=== PATIENT | male | born 1960 | race Caucasian/White ===

== ENCOUNTER → 2016-09-14 | Outpatient (CLI) | payer OTHER ==
--- NOTE | 2016-09-14 17:02 | RADIOLOGY REPORT (SQ) ---
EXAM DESCRIPTION: L SPINE 2 VIEWS COMPLETED DATE/TIME: 09/14/2016 4:38 pm REASON FOR STUDY: SCREEN FOR MRI M54.12 RADICULOPATHY, CERVICAL REGION M54.16 RADICULOPATHY, LUMBA R REGION COMPARISON: None. NUMBER OF VIEWS: Two views. TECHNIQUE: AP and lateral radiographic images acquired of the lumbar spine. LIMITATIONS: None. FINDINGS: MINERALIZATION: Normal. SEGMENTATION: Normal. No transitional anatomy. ALIGNMENT: Normal. VERTEBRAE: Maintained height. No fracture or worrisome bone lesion. DISCS: Prominent disc space narrowing at L4-L5 with sclerosis. POSTERIOR ELEMENTS: Pedicles and facets are intact. No pars defect or posterior arch defects. HARDWARE: Spinal stimulator device and electrodes extending into the thoracic spine. PARASPINAL SOFT TISSUES: Normal. PELVIS: Intact as visualized. No fractures or worrisome bone lesions. SI joints intact. OTHER: No other significant finding. IMPRESSION: DEGENERATIVE DISC DISEASE AT L4-L5. SPINAL STIMULATOR DEVICE. TECHNICAL DOCUMENTATION: JOB ID: [id number] [employer]- All Rights Reserved
--- NOTE | 2016-09-14 17:02 | RADIOLOGY REPORT (SQ) ---
EXAM DESCRIPTION: T SPINE AP/LAT COMPLETED DATE/TIME: 09/14/2016 4:38 pm REASON FOR STUDY: SCREEN FOR MRI M54.12 RADICULOPATHY, CERVICAL REGION M54.16 RADICULOPATHY, LUMB AR REGION COMPARISON: None. NUMBER OF VIEWS: Two views. TECHNIQUE: AP and lateral radiographic images acquired of the thoracic spine. LIMITATIONS: None. FINDINGS: MINERALIZATION: Normal. ALIGNMENT: Normal. No scoliosis. VERTEBRAE: No fracture or bone lesion. Maintained height, normal segmentation. DISCS: No significant loss of height or significant narrowing. No large osteophytes. HARDWARE: Spinous stimulator electrodes with the distal tips in the mid thoracic spine. MEDIASTINUM AND SOFT TISSUES: Normal heart size and aortic contour. No soft tissue abnormality. VISUALIZED LUNG GARCIA: Clear. OTHER: No other significant finding. IMPRESSION: SPINAL STIMULATOR ELECTRODES. TECHNICAL DOCUMENTATION: JOB ID: [id number] [employer]- All Rights Reserved
--- NOTE | 2016-09-15 08:31 | RADIOLOGY REPORT (SQ) ---
EXAM DESCRIPTION: MRI CERVICAL SPINE WITHOUT COMPLETED DATE/TIME: 09/14/2016 6:07 pm REASON FOR STUDY: RADICULOPATHY, CERVICAL REGION, RADICULOPATHY, LUMBAR REGION M54.12 RADICULOPATHY , CERVICAL REGION M54.16 RADICULOPATHY, LUMBAR REGION COMPARISON: None. TECHNIQUE: Sagittal and Axial imaging includes T1, T2, STIR and gradient echo sequences. LIMITATIONS: None. FINDINGS: ALIGNMENT: Straightening of the cervical curvature. Otherwise anatomic alignment. VERTEBRAE: Intact. BONE MARROW: Normal. No marrow replacement or reactive changes. DISCS: Normal. No significant abnormal signal or loss of height. HARDWARE: None in the spine. CORD AND BASE OF BRAIN: Normal in size and signal intensity. SOFT TISSUES: No soft tissue masses. C1-C2: No significant spinal stenosis. C2-C3: No significant spinal stenosis or exit foraminal stenosis. C3-C4: Right-sided disc and osteophyte and uncovertebral spurring. Right exit foraminal stenosis. N o significant spinal stenosis. C4-C5: Minimal right lateral disc and osteophyte. Bilateral uncovertebral spurring. Bilateral exit foraminal stenosis. No significant spinal stenosis. C5-C6: Minimal uncovertebral spurring with minimal bilateral exit foraminal stenosis. C6-C7: Minimal posterior disc bulge. No significant spinal stenosis or exit foraminal stenosis. C7-T1: No significant spinal stenosis or exit foraminal stenosis. UPPER THORACIC: Incompletely imaged. No significant spinal stenosis or exit foraminal stenosis. OTHER: No other significant finding. IMPRESSION: CHRONIC DEGENERATIVE CHANGES DESCRIBED. PRIMARY FINDINGS ARE RELATED TO EXIT FORAMIN AL STENOSIS. NO SIGNIFICANT SPINAL STENOSIS. TECHNICAL DOCUMENTATION: JOB ID: [id number] [employer]- All Rights Reserved
--- NOTE | 2016-09-15 08:34 | RADIOLOGY REPORT (SQ) ---
EXAM DESCRIPTION: MRI LUMBAR SPINE WITHOUT COMPLETED DATE/TIME: 09/14/2016 6:07 pm REASON FOR STUDY: RADICULOPATHY, CERVICAL REGION, RADICULOPATHY, LUMBAR REGION M54.12 RADICULOPATHY , CERVICAL REGION M54.16 RADICULOPATHY, LUMBAR REGION COMPARISON: None. TECHNIQUE: Sagittal and Axial imaging includes T1, T2, STIR and gradient echo sequences. Coronal T2/ HASTE imaging. LIMITATIONS: None. FINDINGS: VISUALIZED UPPER ABDOMEN: Limited evaluation. No acute or suspicious findings suggested. SEGMENTATION: No transitional anatomy. The lowest well-developed disc space is labeled L5-S1. ALIGNMENT: Anatomic. VERTEBRAE: Intact. BONE MARROW: Normal. No marrow replacement or reactive changes. DISC SIGNAL: Decreased height and signal at L4-L5. POSTERIOR ELEMENTS: Generally intact. No pars defect evident. HARDWARE: Spinal stimulator device with electrodes entering at the level of L2 and extending into the thoracic spinal canal. CORD AND CONUS: Normal in size and signal intensity. Conus at the appropriate level. SOFT TISSUES: No aortic aneurysm seen. No bulky retroperitoneal adenopathy or mass. No paraspinal mas s or fluid. L1-L2: No significant spinal stenosis or exit foraminal stenosis. L2-L3: No significant spinal stenosis or exit foraminal stenosis. L3-L4: No significant spinal stenosis or exit foraminal stenosis. L4-L5: Mild diffuse posterior annular bulge with small right lateral component resulting in right lat eral recess stenosis. Mild right exit foraminal stenosis. No central canal stenosis. L5-S1: No significant spinal stenosis or exit foraminal stenosis. LOWER THORACIC: Incompletely imaged. No stenosis seen. SACRUM: Visualized upper sacrum intact. OTHER: No other significant findings. IMPRESSION: DESICCATION OF THE L4-L5 DISC WITH MILD DIFFUSE POSTERIOR ANNULAR BULGE AND SMALL RIGHT LATERAL COMPONENT RESULTING IN RIGHT LATERAL RECESS STENOSIS AND MILD RIGHT EXIT FORAMINAL STENOSIS. REMAINDER OF THE LUMBAR SPINE IS OTHERWISE UNREMARKABLE. TECHNICAL DOCUMENTATION: JOB ID: [id number]- All Rights Reserved
== END ==
LOC: RAD 16:20
PROVIDERS: ATTEND Pain Medicine Interventional Pain Medicine
DX: M54.12 Radiculopathy, cervical region (principal); M54.16 Radiculopathy, lumbar region; M47.892 Other spondylosis, cervical region; M51.36 Other intervertebral disc degeneration, lumbar region
CPT/HCPCS: 72070; 72100; 72141; 72148

== ENCOUNTER → 2017-02-18 | Outpatient (CLI) | payer OTHER ==
--- NOTE | 2017-02-18 13:12 | RADIOLOGY REPORT (SQ) ---
EXAM DESCRIPTION: L SPINE FLEX/EXT ONLY COMPLETED DATE/TIME: 02/18/2017 1:02 pm REASON FOR STUDY: lUMBAR RADIOLOPATHY COMPARISON: August 2016 NUMBER OF VIEWS: Three views TECHNIQUE: AP and lateral flexion and extension views LIMITATIONS: None. FINDINGS: MINERALIZATION: Normal. SEGMENTATION: Normal. No transitional anatomy. ALIGNMENT: Normal. FLEXION/EXTENSION: No instability. VERTEBRAE: Maintained height. No fracture or worrisome bone lesion. DISCS: Disc spacers are identified at the L4-L5 and L5-S1 levels POSTERIOR ELEMENTS: Pedicles and facets are intact. No pars defect or posterior arch defects. HARDWARE: Posterior orthopedic rods transfixed by pedicular screws are identified extending from the L4 level to the level of the 1st sacral segment OTHER: No other significant finding. IMPRESSION: Postsurgical changes as noted above. NO INSTABILITY ON FLEXION/EXTENSION. TECHNICAL DOCUMENTATION: JOB ID: [id number] [employer]- All Rights Reserved
== END ==
LOC: RAD 12:35
PROVIDERS: ATTEND Specialist
DX: M54.16 Radiculopathy, lumbar region (principal)
CPT/HCPCS: 72120

== ENCOUNTER → 2017-03-23 | Outpatient (CLI) | payer OTHER ==
--- NOTE | 2017-03-23 17:44 | RADIOLOGY REPORT (SQ) ---
EXAM DESCRIPTION: L SPINE FLEX/EXT ONLY COMPLETED DATE/TIME: 03/23/2017 4:43 pm REASON FOR STUDY: LUMBAR RADICULOPATHY COMPARISON: None. TECHNIQUE: AP and lateral flexion and extension radiographs of the spine. NUMBER OF VIEWS: Four views. LIMITATIONS: None. FINDINGS: Postoperative changes L4-L5, L5-S1 related previous surgical fusion. Interbody fusion dev ices L4-L5 and L5-S1 in good position. OTHER: No other significant finding. IMPRESSION: NO RADIOGRAPHIC EVIDENCE OF ABNORMAL MOTION. TECHNICAL DOCUMENTATION: JOB ID: [id number] [employer]- All Rights Reserved
== END ==
LOC: RAD 16:19
PROVIDERS: ATTEND Specialist
DX: M54.16 Radiculopathy, lumbar region (principal)
CPT/HCPCS: 72120

== ENCOUNTER 2017-05-18 05:49 | Day surgery (SDC) | payer OTHER ==
[2017-05-11 11:10] LABS: HEMATOCRIT 42.1 % (37.9-51.0); HEMOGLOBIN 13.6 g/dL (13.5-17.0); MEAN CORPUSCULAR HEMOGLOBIN 26.7 pg (27.0-33.4); MEAN CORPUSCULAR HGB CONC 32.4 g/dL (32.0-36.0); MEAN CORPUSCULAR VOLUME 82 fl (80-97); PLATELET COUNT 271 10^3/uL (150-450); RED BLOOD COUNT 5.11 10^6/uL (4.35-5.55); RED CELL DISTRIBUTION WIDTH 14.7 % (11.5-14.0); WHITE BLOOD COUNT 4.8 10^3/uL (4.0-10.5)
[2017-05-11 11:13] LABS: APPEARANCE,URINE CLEAR; BILIRUBIN,URINE NEGATIVE (NEGATIVE); COLOR,URINE YELLOW; GLUCOSE, URINE NEGATIVE (NEGATIVE); KETONES,URINE NEGATIVE (NEGATIVE); LEUKOCYTE ESTERASE,URINE NEGATIVE (NEGATIVE); NITRITE,URINE NEGATIVE (NEGATIVE); PROTEIN,URINE NEGATIVE (NEGATIVE); URINE SPECIFIC GRAVITY 1.016; UROBILINOGEN,URINE NEGATIVE mg/dL (<2.0)
[2017-05-11 11:18] LABS: INTERNATIONAL RATION (INR) 0.91; PARTIAL THROMBOPLASTIN TIME 30.5 SEC (23.5-35.8); PROTHROMBIN TIME 12.9 SEC (11.4-15.4)
--- NOTE | 2017-05-11 11:25 | RADIOLOGY REPORT (SQ) ---
EXAM DESCRIPTION: CHEST PA/LATERAL COMPLETED DATE/TIME: 05/11/2017 10:29 am REASON FOR STUDY: PRE OP COMPARISON: None. TECHNIQUE: Frontal and lateral radiographic views of the chest acquired. NUMBER OF VIEWS: Two view. LIMITATIONS: None. FINDINGS: LUNGS AND PLEURA: No opacities, masses or pneumothorax. No pleural effusion. MEDIASTINUM AND HILAR STRUCTURES: No masses or contour abnormalities. HEART AND VASCULAR STRUCTURES: Heart normal size. No evidence for failure. BONES: No acute findings. HARDWARE: Dorsal epidural spinal leads project to approximately the T6-7 level. OTHER: No other significant finding. IMPRESSION: NO SIGNIFICANT RADIOGRAPHIC FINDING IN THE CHEST. TECHNICAL DOCUMENTATION: JOB ID: [id number] [employer]- All Rights Reserved Reading location - IP/workstation name: [email or web address]
--- NOTE | 2017-05-11 13:21 | EKG REPORT ---
SEVERITY:- NORMAL ECG - SINUS RHYTHM : Confirmed by: Norbert Canada MD 11-May-2017 13:20:47
[~2017-05-18 05:49] MED LIST: CLINDAMYCIN 600 MG/D5W RTU 600 MG/50 ML RTUPB IV PRN; LACTATED RINGERS 1000 ML IV PRN; LIDOCAINE 0.5% INJ-PF (5 MG/ML) 50 ML SDV SUBCUT PRN
[2017-05-18] MEDS ORDERED: FENTANYL CITRATE INJ/PF 100 MCG/2 ML AMPUL ONE (06:50)
[2017-05-18] MEDS ORDERED: MIDAZOLAM 2 MG/2 ML INJ ONE (06:50)
[2017-05-18] MEDS ORDERED: PROPOFOL INJ 200 MG/20 ML VIAL IV ONE (06:50)
[2017-05-18] MEDS ORDERED: BUPIVACAINE HCL 0.25 % INJ/PF (2.5 MG/1 ML) 30 ML VIAL ONE (07:56)
[2017-05-18] MEDS ORDERED: LIDOCAINE 1% INJ-PF (10 MG/ML) 30 ML SDV ONE ×2 (07:56→08:05)
[2017-05-18] MEDS ORDERED: BUPIVACAINE HCL 0.5%-EPI 1:200000 INJ/PF 30 ML VIAL ONE (07:57)
[2017-05-18] MEDS ORDERED: SODIUM BICARBONATE 10 ML IV ONE (07:58)
[2017-05-18] MEDS ORDERED: PROMETHAZINE HCL INJ 25 MG/1 ML VIAL IV PRN (08:29)
[2017-05-18] MEDS ORDERED: DIPHENHYDRAMINE HCL 50 MG/ML VIAL IV PRN (08:29)
[2017-05-18] MEDS ORDERED: MEPERIDINE HCL/PF INJ 25 MG/1 ML DISP.SYRIN IV PRN (08:29)
[2017-05-18] MEDS ORDERED: CLINDAMYCIN 600 MG/D5W RTU 600 MG/50 ML RTUPB IV ONE (09:12)
[2017-05-18] MEDS: FENTANYL CITRATE INJ/PF 100 MCG/2 ML AMPUL ONE ×2 (09:14→09:24)
[2017-05-18] MEDS ORDERED: ACETAMINOPHEN 100 ML IV ONE (09:18)
[2017-05-18] MEDS ORDERED: ONDANSETRON HCL INJ/PF 4 MG/2 ML SDV IV PRN (10:05)
[2017-05-18] MEDS ORDERED: OXYCODONE-ACETAMINOPHEN 5-325 MG TABLET PO PRN (10:05)
[2017-05-18 11:41] VITALS: BP 106/57
--- NOTE | 2017-05-25 14:49 | OPERATIVE REPORT E ---
Operative Report NAME: KIEL GARCÍA : 1960 AGE: 56Y DATE OF SURGERY: 05/18/2017 ROOM: PREOPERATIVE DIAGNOSIS: Implantable pulse generator pocket pain and battery dysfunction. POSTOPERATIVE DIAGNOSIS: Implantable pulse generator pocket pain and battery dysfunction. PROCEDURES PERFORMED: 1. Revision of battery pocket. 2. Replacement of implantable pulse generator with different model. PRIMARY SURGEON: ALMA ROSA PARHAM M.D. ASSISTANTS: None. PREOPERATIVE ANTIBIOTICS: Clindamycin 600 mg given prior to incision. ANESTHESIA: MAC with sedation. ESTIMATED BLOOD LOSS: 5 mL. COMPLICATIONS: None. SPECIMENS REMOVED: Old battery removed and discarded. OPERATIVE FINDINGS: New implantable pulse generator placed with revision of pocket. OPERATIVE INDICATIONS: The patient is a 56-year-old male who has had a [employer] spinal cord stimulator system in place for nearly a year now. The patient has had ongoing issues with battery pocket pain and requested revision of pocket and replacement of battery that was malfunctioning. The patient had all risks and benefits discussed with him in detail including but not limited to bleeding, bruising, infection, injury to nerves, arteries, or veins, failure of the new system to work, migration of pocket, and potential need for revision of leads. The patient expressed understanding and agreed to proceed. OPERATIVE REPORT: The patient was accompanied to the operative suite by Anesthesia, and he was placed in prone position. All pressure points were checked and padded. Standard ASA lines and monitors were applied. The patient was prepped and draped in sterile fashion using chlorhexidine gluconate solution and an Ioban drape. The previously marked incision site over the right buttock was marked and infiltrated with buffered 1% lidocaine. Deeper tissues were infiltrated with 0.25% bupivacaine with 1:200,000 epinephrine. This was done using a 25-gauge needle. A 15-blade scalpel was used to incise the skin along the planned incision site. The previous battery was removed from the implanted site after adequate hemostasis was assured using bipolar electrocautery. The leads were disconnected from the currently placed battery and new battery placed. Notably, the new battery was a [employer] 6 Elite Model through [employer] which is a non-rechargeable battery. At this time, attention was turned to the pocket. Using 3-0 Vicryl suture, 3 sutures were placed along the bottom of the pocket site going from top to bottom in interrupted fashion to ensure closure of the bottom of the pocket. Further dissection, blunt and Bovie dissection, superiorly and laterally to the previous pocket site was performed, and a new implantable pulse generator was easily placed in the revised pocket site. Copious irrigation was performed with dilute Betadine solution. Subsequently, closure ensued with interrupted 3-0 Vicryl suture in vertical mattress fashion. Skin was closed using Dermabond, tape, and glue. The patient tolerated the procedure well and was accompanied to the PACU by Anesthesia Staff. The patient will be seen in 1 day postoperatively. DICTATING PHYSICIAN: ALMA ROSA PARHAM M.D. [id number] PHY#: [id number] ID: [id number] JOB#: [id number] ACCT: [id number] cc:ALMA ROSA PARHAM M.D. >
== END 2017-05-18 11:20 | disposition home or self-care (01) ==
LOC: OROUT 05:49
PROVIDERS: ATTEND Pain Medicine Interventional Pain Medicine
PROC: 0JH70MZ Insertion of Stimulator Generator into Back Subcutaneous Tissue and Fascia, Open Approach (ICD-10-PCS; principal; 2017-05-18 08:00)
DX: G89.4 Chronic pain syndrome (principal); M54.17 Radiculopathy, lumbosacral region; M47.897 Other spondylosis, lumbosacral region; M54.81 Occipital neuralgia; M54.12 Radiculopathy, cervical region; M48.02 Spinal stenosis, cervical region; M47.892 Other spondylosis, cervical region; M50.30 Other cervical disc degeneration, unspecified cervical region; F45.42 Pain disorder with related psychological factors; M51.37 Other intervertebral disc degeneration, lumbosacral region; M79.1 Myalgia; M51.36 Other intervertebral disc degeneration, lumbar region; I10 Essential (primary) hypertension; E78.5 Hyperlipidemia, unspecified; K21.9 Gastro-esophageal reflux disease without esophagitis; G47.33 Obstructive sleep apnea (adult) (pediatric); Z79.899 Other long term (current) drug therapy; Z79.891 Long term (current) use of opiate analgesic; Z87.891 Personal history of nicotine dependence; Z01.812 Encounter for preprocedural laboratory examination; Z88.0 Allergy status to penicillin
CPT/HCPCS: 93005; 36415; 85027; 85610; 85730; 81001; 71046; 93010; 63685; J2250; J3490 ×3; J3010; J2704; J0131; C1820; 300

== ENCOUNTER → 2017-07-14 | Outpatient (CLI) | payer OTHER ==
--- NOTE | 2017-07-14 17:13 | RADIOLOGY REPORT (SQ) ---
EXAM DESCRIPTION: L SPINE W/FLEX/EXT COMPLETED DATE/TIME: 07/14/2017 5:02 pm REASON FOR STUDY: RADICULOPATHY,LUMBAR REGION M54.16 RADICULOPATHY, LUMBAR REGION COMPARISON: 03/23/2017 NUMBER OF VIEWS: Four views TECHNIQUE: An AP view was obtained. Lateral views were obtained in neutral, flexion, and extension. LIMITATIONS: None. FINDINGS: MINERALIZATION: Normal. SEGMENTATION: Normal. No transitional anatomy. ALIGNMENT: Normal. FLEXION/EXTENSION: No instability. VERTEBRAE: Maintained height. No fracture or worrisome bone lesion. DISCS: Disc implants are present at L4-5 and L5-S1. POSTERIOR ELEMENTS: Pedicles and facets are intact. No pars defect or posterior arch defects. HARDWARE: Posterior rods from L4-S1 with screws through the pedicles. Disc space implants at L4-5 an d L5-S1. OTHER: No other significant finding. IMPRESSION: NO SIGNIFICANT FINDING IN THE SPINE. NO INSTABILITY ON FLEXION/EXTENSION. TECHNICAL DOCUMENTATION: JOB ID: [id number] [employer]- All Rights Reserved Reading location - IP/workstation name: [email or web address]
== END ==
LOC: RAD 16:30
PROVIDERS: ATTEND Specialist
DX: M54.16 Radiculopathy, lumbar region (principal)
CPT/HCPCS: 72114

== ENCOUNTER 2018-11-29 12:46 | Day surgery (SDC) | payer OTHER ==
[2018-11-21 10:22] LABS: APPEARANCE,URINE CLEAR; BILIRUBIN,URINE NEGATIVE (NEGATIVE); COLOR,URINE YELLOW; GLUCOSE, URINE NEGATIVE (NEGATIVE); KETONES,URINE NEGATIVE (NEGATIVE); LEUKOCYTE ESTERASE,URINE NEGATIVE (NEGATIVE); NITRITE,URINE NEGATIVE (NEGATIVE); PROTEIN,URINE NEGATIVE (NEGATIVE); URINE SPECIFIC GRAVITY 1.017; UROBILINOGEN,URINE NEGATIVE mg/dL (<2.0)
[2018-11-21 10:28] LABS: HEMATOCRIT 45.3 % (37.9-51.0); HEMOGLOBIN 15.1 g/dL (13.5-17.0); MEAN CORPUSCULAR HEMOGLOBIN 29.1 pg (27.0-33.4); MEAN CORPUSCULAR HGB CONC 33.3 g/dL (32.0-36.0); MEAN CORPUSCULAR VOLUME 87 fl (80-97); PLATELET COUNT 219 10^3/uL (150-450); RED BLOOD COUNT 5.19 10^6/uL (4.35-5.55); RED CELL DISTRIBUTION WIDTH 14.2 % (11.5-14.0); WHITE BLOOD COUNT 5.1 10^3/uL (4.0-10.5)
[2018-11-21 10:33] LABS: INTERNATIONAL RATION (INR) 0.97; PROTHROMBIN TIME 12.9 SEC (11.4-15.4)
--- NOTE | 2018-11-21 10:46 | RADIOLOGY REPORT (SQ) ---
EXAM DESCRIPTION: CHEST PA/LATERAL COMPLETED DATE/TIME: 11/21/2018 10:00 am REASON FOR STUDY: PRE-OP COMPARISON: 10/30/2015 EXAM PARAMETERS: NUMBER OF VIEWS: two views TECHNIQUE: Digital Frontal and Lateral radiographic views of the chest acquired. RADIATION DOSE: NA LIMITATIONS: none FINDINGS: LUNGS AND PLEURA: Stable small calcified granuloma right lower lung. No acute pulmonary consolidation. No pneumothorax or pleural effusion. MEDIASTINUM AND HILAR STRUCTURES: No masses or contour abnormalities. HEART AND VASCULAR STRUCTURES: Heart normal size. No evidence for failure. BONES: No acute findings. HARDWARE: Stimulator device with the leads projected over the mid thoracic spine, new finding since the prior study.OTHER: No other significant finding. IMPRESSION: 1. No significant interval changes since the prior examination dated 10/30/2015. Calcif ied granuloma in the right lung. No acute findings. TECHNICAL DOCUMENTATION: JOB ID: [id number] [employer]- All Rights Reserved Reading location - IP/workstation name: [email or web address]
--- NOTE | 2018-11-21 13:03 | EKG REPORT ---
SEVERITY:- NORMAL ECG - SINUS RHYTHM : Confirmed by: Norbert Canada MD 21-Nov-2018 13:03:19
[~2018-11-29 12:46] MED LIST changes: +CEFAZOLIN SODIUM 1 GM in DEXTROSE 5%-WATER 50 ML IV PRN; +CLINDAMYCIN 600 MG/D5W RTU 600 MG/50 ML RTUPB IV ONE
[2018-11-29] MEDS ORDERED: FENTANYL CITRATE INJ/PF 100 MCG/2 ML AMPUL ONE (14:46)
[2018-11-29] MEDS ORDERED: PROPOFOL INJ 200 MG/20 ML VIAL IV ONE (14:46)
[2018-11-29] MEDS ORDERED: MIDAZOLAM 2 MG/2 ML INJ ONE (14:46)
[2018-11-29] MEDS ORDERED: SODIUM BICARBONATE 4.2% INJ (2.5 MEQ/5 ML) VIAL ONE (14:58)
[2018-11-29] MEDS ORDERED: LIDOCAINE 1% INJ-PF (10 MG/ML) 30 ML SDV ONE (14:58)
[2018-11-29] MEDS ORDERED: BUPIVACAINE HCL 0.5%-EPI 1:200000 INJ/PF 30 ML VIAL ONE (14:58)
[2018-11-29] MEDS ORDERED: BUTALB/ACETAMINOPHEN/CAFFEINE 1 TAB EACH PO ONE (15:00)
[2018-11-29] MEDS ORDERED: MEPERIDINE HCL/PF INJ 25 MG/1 ML DISP.SYRIN IV PRN (15:36)
[2018-11-29] MEDS ORDERED: PROMETHAZINE HCL INJ 25 MG/1 ML VIAL IV PRN ×2 (15:36)
[2018-11-29] MEDS ORDERED: ONDANSETRON HCL INJ/PF 4 MG/2 ML SDV IV PRN ×2 (15:36→16:32)
[2018-11-29] MEDS ORDERED: FENTANYL CITRATE INJ/PF 100 MCG/2 ML AMPUL IV PRN ×3 (15:36)
[2018-11-29] MEDS ORDERED: DIPHENHYDRAMINE HCL 50 MG/ML VIAL IV PRN (15:36)
[2018-11-29] MEDS ORDERED: OXYCODONE-ACETAMINOPHEN 5-325 MG TABLET PO PRN ×3 (15:36→16:32)
[2018-11-29] MEDS ORDERED: LIDOCAINE 1% INJ (10 MG/ML) 10 ML MDV INJ ONE (15:39)
[2018-11-29] MEDS ORDERED: BUPIVACAINE HCL 0.5%-EPI 1:200000 INJ/PF 30 ML VIAL INJ ONE ×2 (15:40)
--- NOTE | 2018-11-29 16:02 | Operative Report ---
Operative Report DATE OF SURGERY: 11/29/18 PREOPERATIVE DIAGNOSIS: Nonfunctioning implantable pulse generator POSTOPERATIVE DIAGNOSIS: Same OPERATION: Replacement implantable pulse generator. revision of battery pocket SURGEON: DANIELLE WELLS ANESTHESIA: Moderate Sedation TISSUE REMOVED OR ALTERED: Nonfunctional battery COMPLICATIONS: None ESTIMATED BLOOD LOSS: 5ML INTRAOPERATIVE FINDINGS: Nonfunctional battery removed replaced with functioning rechargeable battery PROCEDURE: Date of Surgery: November 29, 2018 Preoperative Diagnosis: Nonfunctional battery Postoperative Diagnosis:Same Procedure: SCS Battery Replacement Surgeon: Danielle Wells MD Anesthesia: MAC Complications: None Procedure Detail: After obtaining informed consent and advising the patient of the risks and benefits, including serious neurological injury, bleeding and infection, allergic reaction and , the patient was taken to the operating room. The patient was placed comfortably in the prone position. Comfort was assessed visually and verbally. The patient was then prepped with chlorhexidine with a suitable drying time prior to draping. An Ioban drape was used. The pulse generator was readily palpable and site marked. The previous incisional scar was anesthetized with 1% lidocaine with bicarbonate, followed by bupivacaine 0.25% with epinephrine. Sharp and blunt dissection were performed down to the pulse generator taking care to avoid the SCS wires. This was readily identified. Electrocautery was minimally necessary for hemostasis. The old generator was removed easily. A small relaxing incision was made in the scar capsule of the pulse generator pocket to facilitate placement of the new battery. The new generator was connected to the electrodes. All hex nuts were secured. The generator was placed in the pocket and impedance was tested and was felt to be satisfactory. Good connectivity with the new generator was obtained. The wound was then copiously irrigated with Betadine containing irrigation solution. The site was then closed with interrupted vertical mattress sutures with 3-0 Polysorb. The skin came together nicely. The region was cleansed again followed by placement of dermabond tape and cement. When this was dry, suitable tegaderm sponge dressing was placed. The patient was then taken back to PACU for postoperative care and monitoring.
[2018-11-29 17:12] VITALS: BP 124/90
== END 2018-11-29 17:13 | disposition home or self-care (01) ==
LOC: OROUT 12:46
PROVIDERS: ATTEND Pain Medicine Interventional Pain Medicine
DX: G89.4 Chronic pain syndrome (principal); E78.5 Hyperlipidemia, unspecified; I10 Essential (primary) hypertension; Z87.891 Personal history of nicotine dependence; M96.1 Postlaminectomy syndrome, not elsewhere classified; M47.897 Other spondylosis, lumbosacral region; M51.37 Other intervertebral disc degeneration, lumbosacral region; F45.42 Pain disorder with related psychological factors; M46.1 Sacroiliitis, not elsewhere classified; M47.892 Other spondylosis, cervical region; M48.02 Spinal stenosis, cervical region; M50.30 Other cervical disc degeneration, unspecified cervical region; M51.36 Other intervertebral disc degeneration, lumbar region; M53.3 Sacrococcygeal disorders, not elsewhere classified; M54.12 Radiculopathy, cervical region; M54.16 Radiculopathy, lumbar region; M54.17 Radiculopathy, lumbosacral region; M54.81 Occipital neuralgia; M79.12 Myalgia of auxiliary muscles, head and neck; Z51.81 Encounter for therapeutic drug level monitoring; Z79.899 Other long term (current) drug therapy
CPT/HCPCS: 93005; 36415; 85027; 85610; 85730; 81001; 71046; 93010; 00300; 63688; J2250; J3490 ×4; J3010; J2704; 300

== ENCOUNTER → 2018-12-07 | Outpatient (CLI) | payer OTHER ==
--- NOTE | 2018-12-07 10:52 | RADIOLOGY REPORT (SQ) ---
EXAM DESCRIPTION: CERV SP 3 VIEW OR LESS COMPLETED DATE/TIME: 12/07/2018 10:41 am REASON FOR STUDY: (54.12)RADICULOPATHY, CERVICAL REGION M54.12 RADICULOPATHY, CERVICAL REGION COMPARISON: None. TECHNIQUE: Lateral flexion and extension radiographs of the spine. NUMBER OF VIEWS: Two views. LIMITATIONS: None. FINDINGS: Normal alignment, maintained throughout flexion and extension. No abnormal motion. OTHER: Prior anterior fusion from C3 through C5. IMPRESSION: NO RADIOGRAPHIC EVIDENCE OF ABNORMAL MOTION. TECHNICAL DOCUMENTATION: JOB ID: [id number] [employer]- All Rights Reserved Reading location - IP/workstation name: [email or web address]
== END ==
LOC: RAD 10:08
PROVIDERS: ATTEND Specialist
DX: M54.12 Radiculopathy, cervical region (principal); Z98.1 Arthrodesis status
CPT/HCPCS: 72040

== ENCOUNTER → 2019-01-19 | Outpatient (CLI) | payer OTHER ==
--- NOTE | 2019-01-19 19:24 | RADIOLOGY REPORT (SQ) ---
EXAM DESCRIPTION: CERV SP 3 VIEW OR LESS COMPLETED DATE/TIME: 01/19/2019 6:30 pm REASON FOR STUDY: (M54.12)RADICULOPATHY, CERVICAL REGION M54.12 RADICULOPATHY, CERVICAL REGION COMPARISON: None. NUMBER OF VIEWS: Two views TECHNIQUE: Lateral flexion and extension images acquired of the cervical spine. LIMITATIONS: None. FINDINGS: MINERALIZATION: Normal. ALIGNMENT: Anatomic. VERTEBRAE: Vertebral bodies of normal height. DISCS: There is narrowing of the C5-6 disc space. Small marginal osteophytes are present. HARDWARE: Anterior plate from C3-C5 with screws into the vertebral bodies. Disc implants. SOFT TISSUES: No masses or calcifications. Lung apices clear. OTHER: No other significant finding. IMPRESSION: Prior ACDF C3-C5. No instability on flexion/ extension. Degenerative disc disease. Sp ondylosis. TECHNICAL DOCUMENTATION: JOB ID: [id number]- All Rights Reserved Reading location - IP/workstation name: [email or web address]
== END ==
LOC: RAD 18:00
PROVIDERS: ATTEND Specialist
DX: M50.122 Cervical disc disorder at C5-C6 level with radiculopathy (principal); M47.892 Other spondylosis, cervical region
CPT/HCPCS: 72040

== ENCOUNTER → 2019-08-29 | Outpatient (CLI) | payer OTHER ==
--- NOTE | 2019-08-29 13:03 | RADIOLOGY REPORT (SQ) ---
EXAM DESCRIPTION: NM GASTRIC EMPTYING STUDY IMAGES COMPLETED DATE/TIME: 08/29/2019 11:27 am REASON FOR STUDY: EPIGASTRIC PAIN (R10.13) R10.13 EPIGASTRIC PAIN COMPARISON: None. RADIONUCLIDE AND DOSE: 2 millicuries Tc-99m Sulfur Colloid. Egg salad sandwich The route of agent administration: Oral. TECHNIQUE: 1 minute serial static imaging performed at time of meal, 1 hour, 2 hours, 3 hours, and 4 hours as needed. Once stomach reaches 90% emptying, the test is complete. Image intensity values pl otted with respect to time with linear regression algorithm. LIMITATIONS: None. FINDINGS: Patient was observed for 4 hours. Immediate post meal serves as baseline. Gastric emptying at 30 minutes was 3.3%. Gastric emptying at 60 minutes was 24.5% Gastric emptying at 90 minutes was 52.4%. Gastric emptying at 120 minutes was 73.4%. Gastric emptying at 240 minutes was 98.2% Normal values: 60 minutes: 30-90% retained. If less than 30%, abnormally rapid emptying. If greater than 90%, delaye d gastric emptying. 120 minutes: <60% retained. If greater than 60%, delayed gastric emptying. 240 minutes: <10% retained. If greater than 10%, delayed gastric emptying. IMPRESSION: NORMAL GASTRIC EMPTYING. TECHNICAL DOCUMENTATION: JOB ID: [id number] [employer]- All Rights Reserved rev Reading location - IP/workstation name: [email or web address]
== END ==
LOC: RAD 07:29
PROVIDERS: ATTEND Internal Medicine Gastroenterology
DX: R10.13 Epigastric pain (principal)
CPT/HCPCS: 78264; A9541

== ENCOUNTER 2019-12-06 15:12 | Emergency (ER) | payer OTHER ==
[2019-12-06 15:41] LABS: ABSOLUTE BASOPHILS # (AUTO) 0.1 10^3/uL (0.0-0.2); ABSOLUTE LYMPHOCYTES (AUTO) 1.8 10^3/uL (0.5-4.7); HEMOGLOBIN 14.6 g/dL (13.5-17.0); TOTAL CELLS COUNTED % (AUTO) 100 %
[2019-12-06 15:51] LABS: ABSOLUTE EOSINOPHILS # (AUTO) 0.1 10^3/uL (0.0-0.6); ABSOLUTE MONOCYTES (AUTO) 0.6 10^3/uL (0.1-1.4); ABSOLUTE NEUT (AUTO) 4.4 10^3/uL (1.7-8.2); BASOPHILS % (AUTO) 0.9 % (0-2); HEMATOCRIT 42.4 % (37.9-51.0); LYMPHOCYTES % (AUTO) 25.6 % (13-45); MEAN CORPUSCULAR HEMOGLOBIN 30.5 pg (27.0-33.4); MEAN CORPUSCULAR HGB CONC 34.4 g/dL (32.0-36.0); MEAN CORPUSCULAR VOLUME 89 fl (80-97); MONOCYTES % (AUTO) 8.6 % (3-13); PLATELET COUNT 204 10^3/uL (150-450); RED BLOOD COUNT 4.79 10^6/uL (4.35-5.55); RED CELL DISTRIBUTION WIDTH 13.5 % (11.5-14.0); SEGMENTED NEUTROPHILS % (AUTO) 62.9 % (42-78)
[2019-12-06 15:58] LABS: ALBUMIN 4.7 g/dL (3.5-5.0); ALKALINE PHOSPHATASE 42 U/L (38-126); ANION GAP 10 (5-19); ASPARTATE AMINO TRANSFERASE 30 U/L (17-59); BILIRUBIN,DIRECT 0.3 mg/dL (0.0-0.4); BILIRUBIN,TOTAL 0.5 mg/dL (0.2-1.3); BLOOD UREA NITROGEN 20 mg/dL (7-20); CALCIUM 9.6 mg/dL (8.4-10.2); CARBON DIOXIDE 22 mmol/L (22-30); CHLORIDE 108 mmol/L (98-107); GLUCOSE 118 mg/dL (75-110); POTASSIUM 4.3 mmol/L (3.6-5.0); TOTAL PROTEIN 7.6 g/dL (6.3-8.2)
[2019-12-06] MEDS ORDERED: NORMAL SALINE 1000 ML 1,000 ML IV ONE (16:02)
[2019-12-06] MEDS ORDERED: FENTANYL CITRATE INJ/PF 100 MCG/2 ML AMPUL IV ONE (16:02)
[2019-12-06] MEDS ORDERED: ONDANSETRON HCL INJ/PF 4 MG/2 ML SDV IV ONE (16:02)
--- NOTE | 2019-12-06 16:20 | RADIOLOGY REPORT (SQ) ---
EXAM DESCRIPTION: SHOULDER LEFT 2 OR MORE VIEWS IMAGES COMPLETED DATE/TIME: 12/06/2019 3:49 pm REASON FOR STUDY: fall injury, deformity. COMPARISON: None. NUMBER OF VIEWS: Two views. TECHNIQUE: AP and scapular Y views of the left shoulder were obtained . LIMITATIONS: None. FINDINGS: MINERALIZATION: Normal. BONES: No fracture. JOINTS: Anterior inferior dislocation of the humerus relative to the glenoid. The acromioclavicular joint space is narrowed. VISUALIZED LUNGS AND RIBS: No pneumothorax or rib fracture. SOFT TISSUES: No radiopaque foreign body. OTHER: No other findings. IMPRESSION: Anterior inferior dislocation of the humerus relative to the glenoid. TECHNICAL DOCUMENTATION: JOB ID: [id number] [employer]- All Rights Reserved Reading location - IP/workstation name: [email or web address]
[2019-12-06] MEDS ORDERED: PROPOFOL INJ 200 MG/20 ML VIAL IV ONE (16:34)
--- NOTE | 2019-12-06 17:54 | RADIOLOGY REPORT (SQ) ---
EXAM DESCRIPTION: SHOULDER LEFT 1 VIEW IMAGES COMPLETED DATE/TIME: 12/06/2019 5:44 pm REASON FOR STUDY: post reduction COMPARISON: 12/06/2019 NUMBER OF VIEWS: One view. TECHNIQUE: An AP postreduction image acquired of the left shoulder. LIMITATIONS: None. FINDINGS: Postreduction image shows the dislocation to have been successfully reduced. No fracture is seen. IMPRESSION: Successful reduction. TECHNICAL DOCUMENTATION: JOB ID: [id number] [email or web address]- All Rights Reserved Reading location - IP/workstation name: [email or web address]
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
--- NOTE | 2019-12-06 18:45 | RADIOLOGY REPORT (SQ) ---
EXAM DESCRIPTION: WRIST LEFT 3 VIEWS IMAGES COMPLETED DATE/TIME: 12/06/2019 6:38 pm REASON FOR STUDY: fall, pain COMPARISON: None. NUMBER OF VIEWS: Three views. TECHNIQUE: AP, lateral, and oblique radiographic images acquired of the left wrist. LIMITATIONS: None. FINDINGS: MINERALIZATION: Normal. BONES: No acute fracture or dislocation. No worrisome bone lesions. Normal alignment. SOFT TISSUES: No soft tissue swelling. No foreign body. OTHER: No other significant finding. IMPRESSION: NEGATIVE STUDY OF THE LEFT WRIST. NO RADIOGRAPHIC EVIDENCE OF ACUTE INJURY. TECHNICAL DOCUMENTATION: JOB ID: [id number] 2010 [employer]- All Rights Reserved Reading location - IP/workstation name: [email or web address]
[2019-12-06 19:07] VITALS: BP 137/91
== END 2019-12-06 19:08 | disposition home or self-care (01) ==
LOC: ER 15:12
DX: S43.015A Anterior dislocation of left humerus, initial encounter (principal); S43.035A Inferior dislocation of left humerus, initial encounter; S63.502A Unspecified sprain of left wrist, initial encounter; T14.8XXA Other injury of unspecified body region, initial encounter; X50.0XXA Overexertion from strenuous movement or load, initial encounter; I10 Essential (primary) hypertension; Z88.0 Allergy status to penicillin
CPT/HCPCS: 99285; 96361; 96374; 96375; 36415; 85025; 80053; 73020; 73030; 73110; 23650; J3010; J2405; J7030; J2704